=== PATIENT | female | born 1990 | race Caucasian/White ===

== ENCOUNTER → 2017-06-04 | Outpatient (CLI) | payer BC ==
[2017-06-04 08:33] LABS: ALT 30 U/L (9-52); AST 20 U/L (14-36); Alkaline Phosphatase 64 U/L (38-126); Anion Gap 8 mmol/L; Blood Urea Nitrogen 12 mg/dL (7-17); Calcium 9.4 mg/dL (8.4-10.2); Carbon Dioxide 27 mmol/L (22-30); Chloride 101 mmol/L (98-107); Cholesterol 205 mg/dL (<200); Glucose 197 mg/dL (74-99); HDL Cholesterol 71 mg/dL (40-60); Non-African American GFR(MDRD) >60 (>60 ml/min/1.73 sqM); Potassium 4.3 mmol/L (3.5-5.1); Sodium 136 mmol/L (137-145); Total Bilirubin 0.6 mg/dL (0.2-1.3); Total Protein 6.2 g/dL (6.3-8.2); Triglycerides 82 mg/dL (<150)
[2017-06-04 11:28] LABS: Urine Creatinine 163.9 mg/dL
== END ==
LOC: LABWHC1 07:17
PROVIDERS: ATTEND Internal Medicine Endocrinology, Diabetes & Metabolism
DX: E03.8 Other specified hypothyroidism (principal); E10.65 Type 1 diabetes mellitus with hyperglycemia
CPT/HCPCS: 36415; 80053; 80061; 82043; 82570; 84443

== ENCOUNTER → 2017-11-12 | Outpatient (CLI) | payer BC | END | disposition home or self-care (01) | LOC: LABWHC1 12:36 | PROVIDERS: ATTEND Internal Medicine | DX: E03.9 Hypothyroidism, unspecified (principal) | CPT/HCPCS: 36415; 84439; 84443 ==

== ENCOUNTER → 2018-03-17 | Outpatient (CLI) | payer BC ==
[2018-03-18 04:03] LABS: Hemoglobin A1C 7.1 % (4.0-6.0)
== END ==
LOC: LABWHC1 16:52
PROVIDERS: ATTEND Internal Medicine
DX: E10.9 Type 1 diabetes mellitus without complications (principal)
CPT/HCPCS: 36415; 83036

== ENCOUNTER → 2018-06-23 | Outpatient (CLI) | payer BC ==
[2018-06-23 17:08] LABS: ALT 33 U/L (9-52); AST 24 U/L (14-36); Albumin 4.2 g/dL (3.5-5.0); Alkaline Phosphatase 60 U/L (38-126); Anion Gap 8 mmol/L; Blood Urea Nitrogen 16 mg/dL (7-17); Calcium 9.3 mg/dL (8.4-10.2); Carbon Dioxide 26 mmol/L (22-30); Chloride 103 mmol/L (98-107); Cholesterol 186 mg/dL (<200); Glucose 142 mg/dL (74-99); HDL Cholesterol 64 mg/dL (40-60); LDL Cholesterol,Calculated 105 mg/dL (0-99); Potassium 4.1 mmol/L (3.5-5.1); Sodium 137 mmol/L (137-145); Total Bilirubin 0.3 mg/dL (0.2-1.3); Triglycerides 86 mg/dL (<150)
[2018-06-23 17:22] LABS: T4, Free (Free Thyroxine) 1.57 ng/dL (0.78-2.19)
[2018-06-24 04:12] LABS: Hemoglobin A1C 6.6 % (4.0-6.0)
== END | disposition home or self-care (01) ==
LOC: LABWHC1 16:22
PROVIDERS: ATTEND Internal Medicine
DX: E03.9 Hypothyroidism, unspecified (principal); E10.9 Type 1 diabetes mellitus without complications
CPT/HCPCS: 36415; 80053; 80061; 82043; 82570; 83036; 84439; 84443

== ENCOUNTER 2018-10-07 21:45 | Emergency (ER) | payer BC ==
[2018-10-07] MEDS ORDERED: MAG HYDROX/AL HYDROX/SIMETH 30 ML, HYOSCYAMINE ELIXIR 10 ML, CIMETIDINE HCL 300 MG, LID... PO STA ×4 (22:20)
[2018-10-07] MEDS ORDERED: SODIUM CHLORIDE 0.9% 500 ML 500 ML IV STA (22:20)
[2018-10-07 22:54] LABS: Basophils % (A) 0 %; Eosinophils # (A) 0.3 k/uL (0-0.7); Eosinophils % (A) 3 %; HCT 43.5 % (34.0-46.0); HGB 14.6 gm/dL (11.4-16.0); Lymphocytes # (A) 0.9 k/uL (1.0-4.8); Lymphocytes % (A) 8 %; MCH 28.3 pg (25.0-35.0); MCHC 33.6 g/dL (31.0-37.0); MCV 84.2 fL (80.0-100.0); Mean Platelet Volume 7.1; Monocytes # (A) 0.5 k/uL (0-1.0); Monocytes % (A) 5 %; Neutrophils # (A) 8.3 k/uL (1.3-7.7); Neutrophils % (A) 81 %; Platelet Count 272 k/uL (150-450); RBC 5.17 m/uL (3.80-5.40); RDW 12.9 % (11.5-15.5); WBC 10.3 k/uL (3.8-10.6)
[2018-10-07 22:55] LABS: HCG,Qualitative Serum Not Detected
[2018-10-07 22:57] LABS: ALT 29 U/L (9-52); AST 25 U/L (14-36); Albumin 4.5 g/dL (3.5-5.0); Alkaline Phosphatase 69 U/L (38-126); Amylase 56 U/L (30-110); Anion Gap 9 mmol/L; Blood Urea Nitrogen 14 mg/dL (7-17); Calcium 9.6 mg/dL (8.4-10.2); Carbon Dioxide 22 mmol/L (22-30); Chloride 104 mmol/L (98-107); Glucose 206 mg/dL (74-99); Lipase 11 U/L (23-300); Potassium 4.3 mmol/L (3.5-5.1); Sodium 135 mmol/L (137-145); Total Bilirubin 0.4 mg/dL (0.2-1.3); Total Protein 6.7 g/dL (6.3-8.2)
[2018-10-07 23:13] VITALS: RESP 18
--- NOTE | 2018-10-07 23:21 | ED ---
Abdominal Pain HPI - General Chief Complaint: Abdominal Pain Stated Complaint: Abd pain Time Seen by Provider: 10/07/18 22:05 Source: patient Mode of arrival: ambulatory Limitations: no limitations - History of Present Illness Initial Comments: 28-year-old female patient presents to the emergency department today for complaints of midepigastric burning and discomfort. He should states that symptoms have been present since about 6:30 PM after eating dinner. States he was a healthy male with turkey burger and quinoa. Patient states she has had 2 similar episodes to this over the last couple of weeks. States that she does feel nauseated but has not vomited. She denies any fevers or chills. States that she has been having some diarrhea and has had 2 episodes today. She denies any constipation. She denies any recent travel or sick contacts. She does have history of type 1 diabetes and hyperthyroidism. States that she does keep very good control of her blood sugars. Patient denies any recent rash, fever, chills, shortness breath, chest pain, back pain, numbness, tingling, dizziness, weakness, hematuria, dysuria, urinary urgency, urinary frequency, headache, visual changes, or any other complaints. - Related Data Home Medications Medication Instructions Recorded Confirmed Beclomethasone Dipropionate [Qvar 2 puff INHALATION RT-BID 10/07/18 10/07/18 80 mcg] Cholecalciferol (Vitamin D3) 2,000 unit PO DAILY 10/07/18 10/07/18 [Vitamin D3] Insulin Aspart (For Pump) [NovoLOG 0.01 unit SQ-PUMP CONTINUOUS 10/07/18 (For Pump)] Levothyroxine Sodium [Synthroid] 150 mcg PO DAILY 10/07/18 10/07/18 Loratadine [Claritin] 10 mg PO DAILY 10/07/18 10/07/18 Montelukast [Singulair] 10 mg PO DAILY 10/07/18 10/07/18 Previous Rx's Medication Instructions Recorded Famotidine [Pepcid] 20 mg PO DAILY #30 tablet 10/08/18 Allergies Allergy/AdvReac Type Severity Reaction Status Date / Time Penicillins Allergy Rash/Hives Verified 10/07/18 22:51 Review of Systems ROS Statement: Those systems with pertinent positive or pertinent negative responses have been documented in the HPI. ROS Other: All systems not noted in ROS Statement are negative. Past Medical History Past Medical History: Asthma, Diabetes Mellitus, Thyroid Disorder History of Any Multi-Drug Resistant Organisms: None Reported Past Surgical History: No Surgical Hx Reported Past Psychological History: No Psychological Hx Reported Smoking Status: Never smoker Past Alcohol Use History: None Reported Past Drug Use History: None Reported General Exam Limitations: no limitations General appearance: alert, in no apparent distress, other (This is a well- developed, well-nourished adult female patient in no acute distress. Vital signs upon presentation are temperature 97.9F, pulse 105, respirations 20, blood pressure 134/92, pulse ox 99% on room air.) Eye exam: Present: normal appearance, PERRL, EOMI. Absent: scleral icterus, conjunctival injection, periorbital swelling ENT exam: Present: normal exam, normal oropharynx, mucous membranes moist Respiratory exam: Present: normal lung sounds bilaterally. Absent: respiratory distress, wheezes, rales, rhonchi, stridor Cardiovascular Exam: Present: regular rate, normal rhythm, normal heart sounds. Absent: systolic murmur, diastolic murmur, rubs, gallop, clicks GI/Abdominal exam: Present: soft, tenderness (Midepigastric discomfort), normal bowel sounds, other (Negative Rogers sign). Absent: distended, guarding, rebound, rigid Neurological exam: Present: alert, oriented X3, CN II-XII intact Psychiatric exam: Present: normal affect, normal mood Skin exam: Present: warm, dry, intact, normal color. Absent: rash Course Vital Signs 10/07/18 10/07/18 10/08/18 22:00 23:12 01:02 Temperature 97.9 F 99 F Pulse Rate 105 H 79 67 Respiratory 20 18 18 Rate Blood Pressure 134/92 112/76 119/64 O2 Sat by Pulse 99 98 98 Oximetry Medical Decision Making - Medical Decision Making 28-year-old female patient history of type 1 diabetes presents the emergency department today for evaluation of midepigastric abdominal pain and burning. Patient states that she does feel nauseous with this. Physical examination did reveal some midepigastric tenderness. Labs reviewed and are unremarkable. Patient did have a meal just prior to arrival therefore we are unable to perform ultrasound due to likelihood of bowel gas obscuring her images. Patient did receive GI cocktail and Pepcid here in the department, she states this improved her symptoms somewhat. Patient is comfortable being discharged home at this time. She will be given outpatient ultrasound, she is instructed to remain nothing by mouth prior to this procedure. She is instructed to follow -up with her primary care physician for results of this test and to discuss possible referral to gastroenterology if test results are normal. She'll be given a prescription for Pepcid. She is instructed to return immediately for any new, worsening, or concerning symptoms. She verbalizes understanding and agrees with this plan. - Lab Data Result diagrams: 10/07/18 22:31 10/07/18 22:31 Lab Results 10/07/18 10/07/18 10/07/18 Range/Units 22:31 22:31 22:31 WBC 10.3 (3.8-10.6) k/uL RBC 5.17 (3.80-5.40) m/uL Hgb 14.6 (11.4-16.0) gm/dL Hct 43.5 (34.0-46.0) % MCV 84.2 (80.0-100.0) fL MCH 28.3 (25.0-35.0) pg MCHC 33.6 (31.0-37.0) g/dL RDW 12.9 (11.5-15.5) % Plt Count 272 (150-450) k/uL Neutrophils % 81 % Lymphocytes % 8 % Monocytes % 5 % Eosinophils % 3 % Basophils % 0 % Neutrophils # 8.3 H (1.3-7.7) k/uL Lymphocytes # 0.9 L (1.0-4.8) k/uL Monocytes # 0.5 (0-1.0) k/uL Eosinophils # 0.3 (0-0.7) k/uL Basophils # 0.0 (0-0.2) k/uL Sodium 135 L (137-145) mmol/L Potassium 4.3 (3.5-5.1) mmol/L Chloride 104 (98-107) mmol/L Carbon Dioxide 22 (22-30) mmol/L Anion Gap 9 mmol/L BUN 14 (7-17) mg/dL Creatinine 0.66 (0.52-1.04) mg/dL Est GFR (CKD-EPI)AfAm >90 (>60 ml/min/1.73 sqM) Est GFR (CKD-EPI)NonAf >90 (>60 ml/min/1.73 sqM) Glucose 206 H (74-99) mg/dL Calcium 9.6 (8.4-10.2) mg/dL Total Bilirubin 0.4 (0.2-1.3) mg/dL AST 25 (14-36) U/L ALT 29 (9-52) U/L Alkaline Phosphatase 69 (38-126) U/L Total Protein 6.7 (6.3-8.2) g/dL Albumin 4.5 (3.5-5.0) g/dL Amylase 56 (30-110) U/L Lipase 11 L (23-300) U/L HCG, Qual Not Detected Urine Color Urine Appearance (Clear) Urine pH (5.0-8.0) Ur Specific Sullivan (1.001-1.035) Urine Protein (Negative) Urine Glucose (UA) (Negative) Urine Ketones (Negative) Urine Blood (Negative) Urine Nitrite (Negative) Urine Bilirubin (Negative) Urine Urobilinogen (<2.0) mg/dL Ur Leukocyte Esterase (Negative) Urine HCG, Qual (Not Detectd) Acetone, Qual Negative (Negative) 10/08/18 10/08/18 Range/Units 00:40 00:40 WBC (3.8-10.6) k/uL RBC (3.80-5.40) m/uL Hgb (11.4-16.0) gm/dL Hct (34.0-46.0) % MCV (80.0-100.0) fL MCH (25.0-35.0) pg MCHC (31.0-37.0) g/dL RDW (11.5-15.5) % Plt Count (150-450) k/uL Neutrophils % % Lymphocytes % % Monocytes % % Eosinophils % % Basophils % % Neutrophils # (1.3-7.7) k/uL Lymphocytes # (1.0-4.8) k/uL Monocytes # (0-1.0) k/uL Eosinophils # (0-0.7) k/uL Basophils # (0-0.2) k/uL Sodium (137-145) mmol/L Potassium (3.5-5.1) mmol/L Chloride (98-107) mmol/L Carbon Dioxide (22-30) mmol/L Anion Gap mmol/L BUN (7-17) mg/dL Creatinine (0.52-1.04) mg/dL Est GFR (CKD-EPI)AfAm (>60 ml/min/1.73 sqM) Est GFR (CKD-EPI)NonAf (>60 ml/min/1.73 sqM) Glucose (74-99) mg/dL Calcium (8.4-10.2) mg/dL Total Bilirubin (0.2-1.3) mg/dL AST (14-36) U/L ALT (9-52) U/L Alkaline Phosphatase (38-126) U/L Total Protein (6.3-8.2) g/dL Albumin (3.5-5.0) g/dL Amylase (30-110) U/L Lipase (23-300) U/L HCG, Qual Urine Color Yellow Urine Appearance Clear (Clear) Urine pH 6.5 (5.0-8.0) Ur Specific Sullivan 1.024 (1.001-1.035) Urine Protein Trace H (Negative) Urine Glucose (UA) 3+ H (Negative) Urine Ketones 3+ H (Negative) Urine Blood Negative (Negative) Urine Nitrite Negative (Negative) Urine Bilirubin Negative (Negative) Urine Urobilinogen <2.0 (<2.0) mg/dL Ur Leukocyte Esterase Negative (Negative) Urine HCG, Qual Not Detected (Not Detectd) Acetone, Qual (Negative) Disposition Clinical Impression: Midepigastric pain Disposition: HOME SELF-CARE Condition: Good Instructions: Diet for Stomach Ulcers and Gastritis (ED), Abdominal Pain (ED) Additional Instructions: Follow up outpatient to get your ultrasound. Follow up with primary care physician to discuss results and possible referral to GI specialty if the ultrasound is normal. Return to the emergency department for recheck if symptoms change or worsen. Prescriptions: Famotidine [Pepcid] 20 mg PO DAILY #30 tablet Is patient prescribed a controlled substance at d/c from ED?: No Referrals: Atilio Aldana MD [Primary Care Provider] - 1-2 days Time of Disposition: 00:49
[2018-10-07] MEDS ORDERED: FAMOTIDINE 20 MG/2 ML VIAL IV STA (23:51)
[2018-10-08 00:52] LABS: Appearance,Urine Clear (Clear); Bilirubin,Urine Negative (Negative); Blood,Urine Negative (Negative); Color,Urine Yellow; Glucose,Urine (UA) 3+ (Negative); Leukocyte Esterase,Urine Negative (Negative); Nitrite,Urine Negative (Negative); PH, Urine 6.5 (5.0-8.0); Protein,Urine Trace (Negative); Specific Gravity,Urine 1.024 (1.001-1.035); Urobilinogen,Urine <2.0 mg/dL (<2.0)
[2018-10-08 00:58] LABS: Ketones,Urine 3+ (Negative)
[2018-10-08 01:03] VITALS: BP 119/64; PULSE 67; TEMP 99
== END 2018-10-08 01:02 | disposition home or self-care (01) ==
LOC: EC 21:45
DX: R10.13 Epigastric pain (principal); R11.0 Nausea; R19.7 Diarrhea, unspecified; J45.909 Unspecified asthma, uncomplicated; E05.90 Thyrotoxicosis, unspecified without thyrotoxic crisis or storm; E10.9 Type 1 diabetes mellitus without complications; Z88.0 Allergy status to penicillin; Z79.4 Long term (current) use of insulin; Z79.51 Long term (current) use of inhaled steroids; Z79.899 Other long term (current) drug therapy
CPT/HCPCS: 36415; 80053; 81003; 81025; 82009; 82150; 83690; 84703; 85025; 96361; 96374; 99284

== ENCOUNTER → 2018-10-08 | Outpatient (CLI) | payer BC ==
--- NOTE | 2018-10-08 15:53 | US ---
EXAMINATION TYPE: US abdomen limited DATE OF EXAM: 10/08/2018 COMPARISON: NONE CLINICAL HISTORY: 28-year-old female R10.13 EPIGASTRIC PAIN. TECHNIQUE: Multiple sonographic images of the right upper quadrant are obtained. FINDINGS: EXAM MEASUREMENTS: Liver Length: 12.5 cm Gallbladder Wall: 0.2 cm CBD: 0.3 cm Right Kidney: 9.3 x 5.1 x 4.5 cm Pancreas: Tail obscured by overlying bowel gas Liver: wnl Gallbladder: wnl Evidence for sonographic Rogers's sign: no CBD: wnl Right Kidney: partially obscured by overlying bowel gas, otherwise no hydronephrosis. IMPRESSION: Suboptimal visualization of portions of the pancreas and portions of the right kidney. Otherwise, no specific abnormality seen in the right upper quadrant.
== END ==
LOC: RADUSWWP 09:45
PROVIDERS: ATTEND Nurse Practitioner
DX: R10.13 Epigastric pain (principal)
CPT/HCPCS: 76705

== ENCOUNTER → 2018-10-30 | Outpatient (CLI) | payer BC ==
[2018-10-30 17:28] LABS: Hemoglobin A1C 6.6 % (4.0-6.0)
== END ==
LOC: LABWHC1 10:11
PROVIDERS: ATTEND Internal Medicine
DX: E10.9 Type 1 diabetes mellitus without complications (principal)
CPT/HCPCS: 36415; 83036

== ENCOUNTER → 2019-04-14 | Outpatient (CLI) | payer BC ==
[2019-04-14 16:06] LABS: Albumin 4.4 g/dL (3.80-4.90); Albumin/Globulin Ratio 3.67 (1.60-3.17); Anion Gap 8.4 mmol/L (4.00-12.00); Calcium 9.6 mg/dL (8.7-10.3); Carbon Dioxide 26.6 mmol/L (21.6-31.8); Globulin 1.2 g/dL (1.6-3.3); LDL Cholesterol,Calculated 96.4 mg/dL (0.0-131.0); Potassium 4.1 mmol/L (3.5-5.5); Total Bilirubin 0.4 mg/dL (0.2-1.2); Total Protein 5.6 g/dL (6.2-8.2); VLDL Calculation 14.6 mg/dL (5.00-40.00)
[2019-04-14 16:14] LABS: T4, Free (Free Thyroxine) 1.4 ng/dL (0.80-1.80)
[2019-04-14 18:39] LABS: Hemoglobin A1C 6.4 % (4.0-6.0)
== END ==
LOC: LABWHC1 08:44
PROVIDERS: ATTEND Internal Medicine
DX: E10.9 Type 1 diabetes mellitus without complications (principal)
CPT/HCPCS: 36415; 80053; 80061; 82043; 82306; 82570; 83036; 84439; 84443

== ENCOUNTER → 2019-08-27 | Outpatient (CLI) | payer BC ==
[2019-08-27 19:05] LABS: Hemoglobin A1C 6.2 % (4.0-6.0)
== END | disposition home or self-care (01) ==
LOC: LABWHC1 08:46
PROVIDERS: ATTEND Internal Medicine
DX: E10.9 Type 1 diabetes mellitus without complications (principal)
CPT/HCPCS: 36415; 83036

== ENCOUNTER → 2019-11-16 | Outpatient (CLI) | payer BC ==
[2019-11-16 17:13] LABS: African American GFR (CKD) 135.7 (60.0-200.0); Anion Gap 6.2 mmol/L (4.00-12.00); BUN/Creat Ratio 21.43 Ratio (12.00-20.00); Calcium 9.3 mg/dL (8.7-10.3); Carbon Dioxide 24.8 mmol/L (21.6-31.8); Chol/HDL Ratio 2.92; LDL Cholesterol,Calculated 98.8 mg/dL (0.0-131.0); Non-African American GFR(CKD) 117.1 (60.0-200.0); Potassium 4.4 mmol/L (3.5-5.5); VLDL Calculation 14.2 mg/dL (5.00-40.00)
[2019-11-16 17:21] LABS: T4, Free (Free Thyroxine) 1.3 ng/dL (0.80-1.80)
[2019-11-16 18:09] LABS: Hemoglobin A1C 5.8 % (4.0-6.0)
[2019-11-16 18:10] LABS: Microalbumin Creatinine Ratio <30 mg/g Creat (0-30)
== END | disposition home or self-care (01) ==
LOC: LABWHC1 09:51
PROVIDERS: ATTEND Internal Medicine
DX: E10.9 Type 1 diabetes mellitus without complications (principal); E03.9 Hypothyroidism, unspecified
CPT/HCPCS: 36415; 80048; 80061; 82043; 82570; 83036; 84439; 84443

== ENCOUNTER → 2019-11-23 | Outpatient (CLI) | payer BC | END | disposition home or self-care (01) | LOC: LABWHC1 12:04 | PROVIDERS: ATTEND Obstetrics & Gynecology | DX: Z34.00 Encounter for supervision of normal first pregnancy, unspecified trimester (principal); Z3A.00 Weeks of gestation of pregnancy not specified | CPT/HCPCS: 36415; 84702; 86850; 86900; 86901 ==

== ENCOUNTER → 2019-11-25 | Outpatient (CLI) | payer BC | END | disposition home or self-care (01) | LOC: LABWHC1 10:25 | PROVIDERS: ATTEND Obstetrics & Gynecology | DX: O02.1 Missed abortion (principal) | CPT/HCPCS: 36415; 84702 ==

== ENCOUNTER → 2019-11-30 | Outpatient (CLI) | payer BC | END | disposition home or self-care (01) | LOC: LABWHC1 11:20 | PROVIDERS: ATTEND Obstetrics & Gynecology | DX: O03.9 Complete or unspecified spontaneous abortion without complication (principal) | CPT/HCPCS: 36415; 84702 ==

== ENCOUNTER → 2020-01-28 | Outpatient (CLI) | payer BC ==
[2020-01-28 09:17] LABS: African American GFR (CKD) >90 (>60 ml/min/1.73 sqM); Glucose 86 mg/dL (74-99); HCT 40.9 % (34.0-46.0); HGB 14.5 gm/dL (11.4-16.0); MCH 30.3 pg (25.0-35.0); MCHC 35.4 g/dL (31.0-37.0); MCV 85.6 fL (80.0-100.0); Mean Platelet Volume 7.6; Non-African American GFR(CKD) >90 (>60 ml/min/1.73 sqM); Platelet Count 228 k/uL (150-450); RBC 4.77 m/uL (3.80-5.40); RDW 12.6 % (11.5-15.5); WBC 6.7 k/uL (3.8-10.6)
[2020-01-28 10:09] LABS: HCG,Quantitative Serum 19364.2 mIU/mL
[2020-01-28 17:45] LABS: Hepatitis B Surface Antigen Non-Reactive (Non-Reactive)
[2020-01-29 06:05] LABS: Toxoplasma Antibody (IgG) <3.0 IU/mL (<7.2); Toxoplasma Antibody (IgM) <3.0 AU/mL (<8.0)
== END | disposition home or self-care (01) ==
LOC: LABWHC1 08:23
PROVIDERS: ATTEND Obstetrics & Gynecology
DX: N91.2 Amenorrhea, unspecified (principal)
CPT/HCPCS: 36415; 82565; 82947; 84702; 85027; 86762; 86777; 86778; 86780; 86850; 86900; 86901; 87340

== ENCOUNTER 2020-03-01 06:41 | Observation (INO) | payer BC ==
[2020-03-01] MEDS ORDERED: SODIUM CHLORIDE 0.9% 1,000 ML IV ONE (06:56)
--- NOTE | 2020-03-01 06:59 | ED ---
Female Urogenital HPI <Ag Lima - Last Filed: 03/01/20 09:04> - General Source: patient, RN notes reviewed, old records reviewed Mode of arrival: EMS <Cyndi Shah - Last Filed: 03/01/20 09:12> - General Chief complaint: Vaginal Bleeding Stated complaint: poss miscarriage Time Seen by Provider: 03/01/20 06:46 - History of Present Illness Initial comments: Judy is a 30-year-old female, Patient. She states that she is approximately 8 weeks . She states that her [employer] is Dr. Morgan. Patient reports that on her last appointment last week they were unable to detect a heartbeat. Discussed likely inevitable miscarriage. She had light bleeding since Saturday of last week. She reports that today at 5 AM started to have severe bleeding and worsening cramping. Patient states that she is having similar abdominal cramping on her last miscarriage. She was unsure if she may need D and C. (Cyndi Shah) - Related Data Home Medications Medication Instructions Recorded Confirmed Beclomethasone Dipropionate [Qvar 2 puff INHALATION RT-BID 10/07/18 10/07/18 80 mcg] Cholecalciferol (Vitamin D3) 2,000 unit PO DAILY 10/07/18 10/07/18 [Vitamin D3] Insulin Aspart (For Pump) [NovoLOG 0.01 unit SQ-PUMP CONTINUOUS 10/07/18 10/07/18 (For Pump)] Levothyroxine Sodium [Synthroid] 150 mcg PO DAILY 10/07/18 10/07/18 Loratadine [Claritin] 10 mg PO DAILY 10/07/18 10/07/18 Montelukast [Singulair] 10 mg PO DAILY 10/07/18 10/07/18 Previous Rx's Medication Instructions Recorded Famotidine [Pepcid] 20 mg PO DAILY #30 tablet 10/08/18 Allergies Allergy/AdvReac Type Severity Reaction Status Date / Time Penicillins Allergy Rash/Hives Verified 10/07/18 22:51 Review of Systems ROS Other: All systems not noted in ROS Statement are negative. <Ag Lima - Last Filed: 03/01/20 09:04> ROS Other: All systems not noted in ROS Statement are negative. <Cyndi Shah - Last Filed: 03/01/20 09:12> ROS Statement: Those systems with pertinent positive or pertinent negative responses have been documented in the HPI. Past Medical History Past Medical History: Asthma, Diabetes Mellitus, Thyroid Disorder History of Any Multi-Drug Resistant Organisms: None Reported Past Surgical History: No Surgical Hx Reported Past Psychological History: No Psychological Hx Reported Smoking Status: Never smoker Past Alcohol Use History: Occasional Past Drug Use History: None Reported <Cyndi Shah - Last Filed: 03/01/20 09:12> General Exam General appearance: alert, in no apparent distress Head exam: Present: atraumatic, normocephalic, normal inspection Eye exam: Present: normal appearance, PERRL, EOMI. Absent: scleral icterus, conjunctival injection, periorbital swelling ENT exam: Present: normal exam, mucous membranes moist Neck exam: Present: normal inspection. Absent: tenderness, meningismus, lymphadenopathy Respiratory exam: Present: normal lung sounds bilaterally. Absent: respiratory distress, wheezes, rales, rhonchi, stridor Cardiovascular Exam: Present: regular rate, normal rhythm, normal heart sounds. Absent: systolic murmur, diastolic murmur, rubs, gallop, clicks GI/Abdominal exam: Present: soft, tenderness (suprapubic), normal bowel sounds. Absent: distended, guarding, rebound, rigid External exam: Present: normal external exam, other (Patient is bleeding through multiple pads and towels underneath her. ) Extremities exam: Present: normal inspection, full ROM, normal capillary refill. Absent: tenderness, pedal edema, joint swelling, calf tenderness Back exam: Present: normal inspection Neurological exam: Present: alert, oriented X3, CN II-XII intact Psychiatric exam: Present: normal affect, normal mood Skin exam: Present: warm, dry, intact, normal color. Absent: rash <Cyndi Shah - Last Filed: 03/01/20 09:12> - General Exam Comments Initial Comments: 30-year-old female. Alert and oriented. (Cyndi Shah) Course Vital Signs 03/01/20 06:53 Temperature 98 F Pulse Rate 115 H Respiratory 18 Rate Blood Pressure 111/87 O2 Sat by Pulse 97 Oximetry Medical Decision Making - Lab Data Result diagrams: 03/01/20 07:20 03/01/20 07:20 <Ag Lima - Last Filed: 03/01/20 09:04> - Lab Data Result diagrams: 03/01/20 07:20 03/01/20 07:20 - Radiology Data Radiology results: report reviewed <ThiCyndi delatorre - Last Filed: 03/01/20 09:12> - Medical Decision Making Patient reexamined and reevaluated by myself, Dr. Lima. Patient resting comfortably in bed. Mild discomfort on abdominal palpation. Patient updated on results. Case was discussed in detail with Dr. Morgan who is familiar with this patient and will take her for D&C later today. I do agree with PA findings. This includes diagnostic interpretation and treatment plan. (Ag Villatoro) 30-year-old female presents today with heavy vaginal bleeding and cramping sta rting at 5 AM. She is a Patient. She also is a type I diabetic. Patient is bleeding through multiple pads passing multiple clots when going to the bathroom and emergency department. Patient reports that she has had some minor slight bleeding since Saturday and at that time reports she had an ultrasound at her [employer] OPERATOR's office which showed no heart rate and suspected inevitable miscarriage. Repeat ultrasound today shows thickened endometrium concern for retained particles conception or molar . Her hCG level is now 12,000. This did decrease from 19,000. Patient is Rh+. I discussed case with Dr. Lima who discussed the case with Dr. Verduzco. We'll admit the Patient at this time for a scheduled D&C around 1pm. Patient is to be NPO. (Cyndi Shah) - Lab Data Lab Results 03/01/20 03/01/20 03/01/20 Range/Units 07:20 07:20 07:20 WBC 8.3 (3.8-10.6) k/uL RBC 4.84 (3.80-5.40) m/uL Hgb 14.3 (11.4-16.0) gm/dL Hct 41.3 (34.0-46.0) % MCV 85.3 (80.0-100.0) fL MCH 29.5 (25.0-35.0) pg MCHC 34.6 (31.0-37.0) g/dL RDW 12.4 (11.5-15.5) % Plt Count 251 (150-450) k/uL Neutrophils % 76 % Lymphocytes % 10 % Monocytes % 5 % Eosinophils % 6 % Basophils % 0 % Neutrophils # 6.3 (1.3-7.7) k/uL Lymphocytes # 0.9 L (1.0-4.8) k/uL Monocytes # 0.5 (0-1.0) k/uL Eosinophils # 0.5 (0-0.7) k/uL Basophils # 0.0 (0-0.2) k/uL PT 10.0 (9.0-12.0) sec INR 1.0 (<1.2) APTT 22.5 (22.0-30.0) sec Sodium 135 L (137-145) mmol/L Potassium 3.9 (3.5-5.1) mmol/L Chloride 102 (98-107) mmol/L Carbon Dioxide 23 (22-30) mmol/L Anion Gap 10 mmol/L BUN 16 (7-17) mg/dL Creatinine 0.51 L (0.52-1.04) mg/dL Est GFR (CKD-EPI)AfAm >90 (>60 ml/min/1.73 sqM) Est GFR (CKD-EPI)NonAf >90 (>60 ml/min/1.73 sqM) Glucose 112 H (74-99) mg/dL Calcium 9.3 (8.4-10.2) mg/dL Total Bilirubin 0.4 (0.2-1.3) mg/dL AST 19 (14-36) U/L ALT 14 (4-34) U/L Alkaline Phosphatase 53 (38-126) U/L Total Protein 6.4 (6.3-8.2) g/dL Albumin 4.2 (3.5-5.0) g/dL HCG, Quant 87047.0 mIU/mL Blood Type Blood Type Recheck Bld Type Recheck Status 03/01/20 Range/Units 07:20 WBC (3.8-10.6) k/uL RBC (3.80-5.40) m/uL Hgb (11.4-16.0) gm/dL Hct (34.0-46.0) % MCV (80.0-100.0) fL MCH (25.0-35.0) pg MCHC (31.0-37.0) g/dL RDW (11.5-15.5) % Plt Count (150-450) k/uL Neutrophils % % Lymphocytes % % Monocytes % % Eosinophils % % Basophils % % Neutrophils # (1.3-7.7) k/uL Lymphocytes # (1.0-4.8) k/uL Monocytes # (0-1.0) k/uL Eosinophils # (0-0.7) k/uL Basophils # (0-0.2) k/uL PT (9.0-12.0) sec INR (<1.2) APTT (22.0-30.0) sec Sodium (137-145) mmol/L Potassium (3.5-5.1) mmol/L Chloride (98-107) mmol/L Carbon Dioxide (22-30) mmol/L Anion Gap mmol/L BUN (7-17) mg/dL Creatinine (0.52-1.04) mg/dL Est GFR (CKD-EPI)AfAm (>60 ml/min/1.73 sqM) Est GFR (CKD-EPI)NonAf (>60 ml/min/1.73 sqM) Glucose (74-99) mg/dL Calcium (8.4-10.2) mg/dL Total Bilirubin (0.2-1.3) mg/dL AST (14-36) U/L ALT (4-34) U/L Alkaline Phosphatase (38-126) U/L Total Protein (6.3-8.2) g/dL Albumin (3.5-5.0) g/dL HCG, Quant mIU/mL Blood Type O Positive Blood Type Recheck O Pos Bld Type Recheck Status No - Radiology Data Ultrasound shows endometrium remains thickened measuring 1.9 cm and vascular. Retained products or molar not excluded. There is a 2.4 cm cyst in the left ovary. Correlate her beta hCG and ultrasound is warranted. There is a 5 cm area of abnormal echogenicity in the upper portion which could represent a blood clot or hematoma. (Cyndi Shah) Disposition <Ag Lima - Last Filed: 03/01/20 09:04> Is patient prescribed a controlled substance at d/c from ED?: No Time of Disposition: 09:12 <Cyndi Shah - Last Filed: 03/01/20 09:12> Clinical Impression: Miscarriage, Diabetes Disposition: ADMITTED IP TO THIS HOSP Condition: Stable Referrals: Atilio Aldana MD [Primary Care Provider] - 1-2 days
[2020-03-01 07:39] LABS: Basophils % (A) 0 %; Eosinophils # (A) 0.5 k/uL (0-0.7); Eosinophils % (A) 6 %; HCT 41.3 % (34.0-46.0); HGB 14.3 gm/dL (11.4-16.0); Lymphocytes # (A) 0.9 k/uL (1.0-4.8); Lymphocytes % (A) 10 %; MCH 29.5 pg (25.0-35.0); MCHC 34.6 g/dL (31.0-37.0); MCV 85.3 fL (80.0-100.0); Mean Platelet Volume 7.7; Monocytes # (A) 0.5 k/uL (0-1.0); Monocytes % (A) 5 %; Neutrophils # (A) 6.3 k/uL (1.3-7.7); Neutrophils % (A) 76 %; Platelet Count 251 k/uL (150-450); RBC 4.84 m/uL (3.80-5.40); RDW 12.4 % (11.5-15.5); WBC 8.3 k/uL (3.8-10.6)
[2020-03-01 07:50] LABS: ALT 14 U/L (4-34); AST 19 U/L (14-36); African American GFR (CKD) >90 (>60 ml/min/1.73 sqM); Albumin 4.2 g/dL (3.5-5.0); Alkaline Phosphatase 53 U/L (38-126); Anion Gap 10 mmol/L; Blood Urea Nitrogen 16 mg/dL (7-17); Calcium 9.3 mg/dL (8.4-10.2); Carbon Dioxide 23 mmol/L (22-30); Chloride 102 mmol/L (98-107); Glucose 112 mg/dL (74-99); Non-African American GFR(CKD) >90 (>60 ml/min/1.73 sqM); Potassium 3.9 mmol/L (3.5-5.1); Sodium 135 mmol/L (137-145); Total Bilirubin 0.4 mg/dL (0.2-1.3); Total Protein 6.4 g/dL (6.3-8.2)
[2020-03-01 07:54] LABS: Partial Thromboplastin Time 22.5 sec (22.0-30.0)
--- NOTE | 2020-03-01 08:23 | US ---
EXAMINATION TYPE: Transabdominal DATE OF EXAM: 03/01/2020 7:57 AM COMPARISON: NONE CLINICAL HISTORY: pain. demise seen by ultrasound at Dr. Morgan's office 1 week ago, bleeding x 1 week that has gotten worse today, 2, miscarriage 1 EXAM PERFORMED: Transabdominal (TA) EXAM MEASUREMENTS: GESTATIONAL AGE / DATING Physician Established: (10 weeks/0 days) EDC: 09/27/2020 Dates by LMP: (10 weeks/0 days) EDC: 09/27/2020 Dates by First Scan: No previous done here Dates by Current Scan for: No IUP seen at this time MATERNAL ANATOMY Uterus: 11.2 x 4.6 x 5.5cm Endometrium: thickened at 1.9cm, vascular Right Ovary: 2.9 x 1.8 x 1.9cm Left Ovary: 3.4 x 2.7 x 2.8cm Post CDS / Adnexa: wnl Presence of free fluid: no Presence of corpus luteal cyst: left ovary: 2.4cm cystic area Presence of subchorionic bleed: no 4.4 x 3.1 x 5.0cm area seen within upper portion of vagina, possible clot GESTATION / SURVEY IUP: No IUP seen at this time Date of LMP: 12/22/2019 Beta HcG (if available): Not available at time of exam. IMPRESSION: 1. The endometrium remains thickened measuring 1.9 cm and vascular. Retained products or molar pregna ncy not excluded. There remains a 2.4 cm cyst in the left ovary. Correlate with beta hCG and pelvic u ltrasound as clinically warranted. 2. There is a 5 cm area of abnormal echogenicity in the upper portion Amina which could represent a blood clot or hematoma.
[2020-03-01] MEDS ORDERED: ACETAMINOPHEN TAB 325 MG TAB PO PRN (09:12)
[2020-03-01] MEDS ORDERED: KETOROLAC 30 MG/ML 1 ML VIAL IVP PRN (09:12)
[2020-03-01] MEDS ORDERED: IBUPROFEN 400 MG TAB PO PRN (09:12)
[2020-03-01] MEDS ORDERED: MORPHINE SULFATE 4 MG/ML SYRINGE IV PRN (09:12)
[2020-03-01] MEDS ORDERED: NALOXONE 0.4 MG/ML 1 ML VIAL IV PRN (09:12)
[2020-03-01] MEDS: SODIUM CHLORIDE 0.9% 1,000 ML IV SCH ×2 (09:36→10:35)
--- NOTE | 2020-03-01 11:52 | P.HPOB ---
History of Present Illness H&P Date: 03/01/20 Chief Complaint: Vaginal bleeding, known missed This patient is a pleasant 30-year-old 2 para 0 female estimated date of confinement 09/27/2020 estimated gestational age approximately 10 weeks who has been seen in my office multiple times for this . Patient initially had 2 ultrasounds which showed an intrauterine however there was a slow heartbeat. Patient had a follow-up ultrasound most recently that showed no cardiac activity. She denied discussed options at that time and she elected to watch this expectantly. Patient did have some bleeding last week and began heavy bleeding this morning. Ultrasound shows that there is no longer a sac but there does appear to be retained tissue. Patient now presents for suction D&C for treatment. Review of Systems Genitourinary: Reports Menstruation: Reports as per HPI Past Medical History Past Medical History: Asthma, Diabetes Mellitus, Thyroid Disorder Additional Past Medical History / Comment(s): hypothyroidism History of Any Multi-Drug Resistant Organisms: None Reported Past Surgical History: No Surgical Hx Reported Additional Past Surgical History / Comment(s): wisdom teeth removed Past Anesthesia/Blood Transfusion Reactions: No Reported Reaction Past Psychological History: No Psychological Hx Reported Smoking Status: Never smoker Past Alcohol Use History: Occasional Past Drug Use History: None Reported - Past Family History Mother Family Medical History: Asthma Father Family Medical History: No Reported History Medications and Allergies Home Medications Medication Instructions Recorded Confirmed Type Beclomethasone Dipropionate [Qvar 2 puff INHALATION RT-BID 10/07/18 03/01/20 History 80 mcg] Cholecalciferol (Vitamin D3) 2,000 unit PO DAILY 10/07/18 03/01/20 History [Vitamin D3] Levothyroxine Sodium [Synthroid] 150 mcg PO DAILY 10/07/18 03/01/20 History Loratadine [Claritin] 10 mg PO DAILY 10/07/18 03/01/20 History Montelukast [Singulair] 10 mg PO DAILY 10/07/18 03/01/20 History Albuterol Sulfate [Proair Hfa] 2 puff INHALATION RT-QID PRN 03/01/20 03/01/20 History Folic Acid 1 mg PO DAILY 03/01/20 03/01/20 History INSULIN LISPRO (For Pump) [humaLOG 0.01 units SQ-PUMP CONTINUOUS 03/01/20 03/01/20 History (For Pump)] Pnv,Calcium 72/Iron/Folic Acid 1 tab PO DAILY 03/01/20 03/01/20 History [ Plus Tablet] Allergies Allergy/AdvReac Type Severity Reaction Status Date / Time Penicillins Allergy Rash/Hives Verified 10/07/18 22:51 Exam Vital Signs Temp Pulse Pulse Resp BP BP Pulse Ox 03/01/20 10:38 98.3 F 89 17 117/66 100 03/01/20 09:39 86 16 132/86 100 03/01/20 06:53 98 F 115 H 18 111/87 97 Intake and Output 02/29/20 03/01/20 03/01/20 22:59 06:59 14:59 Other: Weight 72.575 kg 72.575 kg Results Blood type is O+., Ultrasounds as above. Result Diagrams: 03/01/20 07:20 03/01/20 07:20 Abnormal Lab Results - Last 24 Hours (Table) 03/01/20 03/01/20 Range/Units 07:20 07:20 Lymphocytes # 0.9 L (1.0-4.8) k/uL Sodium 135 L (137-145) mmol/L Creatinine 0.51 L (0.52-1.04) mg/dL Glucose 112 H (74-99) mg/dL Assessment and Plan Assessment: This is a pleasant 30-year-old 2 para 0 female estimated gestational age 10 weeks by dates however ultrasound gestational age is probably closer to 6-8 weeks with incomplete and vaginal bleeding. Plan at this time is to proceed with suction D&C for treatment. Patient understands this surgery and risks including risks of infection, bleeding, possible uterine perforation. All the patient's questions been answered and a written consent is obtained. (1) 10 weeks gestation of Current Visit: Yes Status: Acute Code(s): Z3A.10 - 10 WEEKS GESTATION OF SNOMED Code(s): 31859234 (2) Incomplete Current Visit: Yes Status: Acute Code(s): O03.4 - INCOMPLETE SPONTANEOUS WITHOUT COMPLICATION SNOMED Code(s): 649312396
[2020-03-01] MEDS ORDERED: IV FLUID CONTINUATION 1,000 ML IV ONE (11:56)
[2020-03-01] MEDS ORDERED: ONDANSETRON 4 MG/2 ML VIAL IVP ONE (12:01)
[2020-03-01 12:10] LABS: Glucose,Whole Blood 108 mg/dL (75-99)
[2020-03-01] MEDS ORDERED: SCOPOLAMINE 1.5MG/72HR PATCH TRANSDERM ONE (12:13)
[2020-03-01] MEDS ORDERED: DEXAMETHASONE SOD PHOS (MDV) 100 MG/10 ML VIAL IVP ONE (12:14)
[2020-03-01] MEDS ORDERED: PROPOFOL 10 MG/ML 20 ML VIAL IV ONE (12:45)
[2020-03-01] MEDS ORDERED: MIDAZOLAM 2 MG/2 ML VIAL ONE (12:45)
[2020-03-01] MEDS ORDERED: LIDOCAINE 1% INJ 10MG/ML (20 ML MDV) ONE (12:45)
[2020-03-01] MEDS ORDERED: fentaNYL (PF) 50 MCG/ML 2 ML AMP ONE (12:45)
[2020-03-01] MEDS ORDERED: SUCCINYLCHOLINE CHLORIDE 100 MG/5 ML SYR IV ONE (12:45)
[2020-03-01 13:21] VITALS: RESP 16
--- NOTE | 2020-03-01 13:38 | P.OP ---
Date of Procedure: 03/01/20 Preoperative Diagnosis: Incomplete Postoperative Diagnosis: Same Procedure(s) Performed: Suction D&C Anesthesia: ROSARIO Surgeon: Gibson Morgan Estimated Blood Loss (ml): 25 Urine output (ml): 50 Pathology: other (Uterine contents) Condition: stable Disposition: PACU Indications for Procedure: Please see dictated H&P for intimate details of this patient's admission. Brief summary this pleasant 30-year-old 2 para 0 female approximately 8-10 weeks gestation with known missed who began bleeding heavily this morning. Patient passed some of the tissue however ultrasound shows are still retained products. She now presents for suction D&C for further treatment. She does understand the surgery and risks including risks of infection, bleeding, possible uterine perforation. All the patient's questions are answered written consent is obtained. Operative Findings: This patient had retained products of conception consistent with incomplete . Description of Procedure: This patient is taken to the operating room where she is laid in the supine position. She subsequently undergoes general endotracheal anesthesia without incident. An adequate level of anesthesia was placed in dorsal lithotomy position. She has a vaginal perineal prep and drape. Examination under anesthesia shows a mid position uterus slightly enlarged. Cervix is already dilated to allow a 9 curved suction curette easily uterine cavity. Using Allis clamp I grabbed the anterior lip of the cervix and the suction catheters placed gently into the uterine cavity and a generous amount of tissue is removed. Several passes are made to no further tissue was noted. A gentle but thorough 4 quadrant curettage then done to ensure no further retained tissue. There is minimal bleeding this time. Prior to procedure patient's bladder was drained for 50 mL of urine. The Allis and weighted speculum are removed. All counts are correct 3. There are no complications. 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
--- NOTE | 2020-03-01 13:47 | P.DS ---
Providers Date of admission: 03/01/20 09:15 Expected date of discharge: 03/01/20 Attending physician: Gibson Morgan Primary care physician: Atilio Aldana - Discharge Diagnosis(es) (1) 10 weeks gestation of Current Visit: Yes Status: Acute (2) Incomplete Current Visit: Yes Status: Acute Hospital Course: Please see dictated H&P and operative note for this patient's admission. Brief summary pleasant 30-year-old 2 para 0 female admitted for suction D&C secondary to incomplete . Patient went above-named surgery did well postoperatively and discharged home see me in 1-2 weeks. Procedures: Suction D&C Patient Condition at Discharge: Good Plan - Discharge Summary Discharge Rx Participant: Yes New Discharge Prescriptions: New Ibuprofen [Motrin] 600 mg PO Q6HR PRN #30 tab PRN Reason: Pain No Action Montelukast [Singulair] 10 mg PO DAILY Loratadine [Claritin] 10 mg PO DAILY Levothyroxine Sodium [Synthroid] 150 mcg PO DAILY Beclomethasone Dipropionate [Qvar 80 mcg] 2 puff INHALATION RT-BID Cholecalciferol (Vitamin D3) [Vitamin D3] 2,000 unit PO DAILY INSULIN LISPRO (For Pump) [humaLOG (For Pump)] 0.01 units SQ-PUMP CONTINUOUS Pnv,Calcium 72/Iron/Folic Acid [ Plus Tablet] 1 tab PO DAILY Folic Acid 1 mg PO DAILY Albuterol Sulfate [Proair Hfa] 2 puff INHALATION RT-QID PRN PRN Reason: Shortness Of Breath Discharge Medication List Beclomethasone Dipropionate [Qvar 80 mcg] 2 puff INHALATION RT-BID 10/07/18 [History] Cholecalciferol (Vitamin D3) [Vitamin D3] 2,000 unit PO DAILY 10/07/18 [History] Levothyroxine Sodium [Synthroid] 150 mcg PO DAILY 10/07/18 [History] Loratadine [Claritin] 10 mg PO DAILY 10/07/18 [History] Montelukast [Singulair] 10 mg PO DAILY 10/07/18 [History] Albuterol Sulfate [Proair Hfa] 2 puff INHALATION RT-QID PRN 03/01/20 [History] Folic Acid 1 mg PO DAILY 03/01/20 [History] INSULIN LISPRO (For Pump) [humaLOG (For Pump)] 0.01 units SQ-PUMP CONTINUOUS 03/01/20 [History] Ibuprofen [Motrin] 600 mg PO Q6HR PRN #30 tab 03/01/20 [Rx] Pnv,Calcium 72/Iron/Folic Acid [ Plus Tablet] 1 tab PO DAILY 03/01/20 [History] Follow up Appointment(s)/Referral(s): Gibson Morgan MD [STAFF PHYSICIAN] - 1 Week (Please call the office to see me in 1-2 weeks for postoperative evaluation.) Patient Instructions/Handouts: *Sur[facility] - (Anesthesia) Discharge Instructions Outpatient Surgery, *[facility] - Scopalamine Patch Instructions, Miscarriage (DC), Dilation and Curettage (DC) Activity/Diet/Wound Care/Special Instructions: No intercourse or anything per vagina for 7 days. Please call if any fever, chills, excessive vaginal bleeding, and/or abdominal pain. Discharge Disposition: HOME SELF-CARE
[2020-03-01 14:18] VITALS: TEMP 98.1
[2020-03-01 15:27] VITALS: PULSE 89
[2020-03-01 15:28] VITALS: BP 113/74
[2020-03-02] MEDS ORDERED: PANTOPRAZOLE 40 MG/10 ML VIAL IV SCH (09:00)
== END 2020-03-01 15:50 | disposition home or self-care (01) ==
LOC: EC 06:41 → 5NMEDONC 09:15
PROVIDERS: ADMIT Obstetrics & Gynecology; ATTEND Obstetrics & Gynecology
DX: O03.4 Incomplete spontaneous abortion without complication (principal); E10.9 Type 1 diabetes mellitus without complications; E03.9 Hypothyroidism, unspecified; J45.909 Unspecified asthma, uncomplicated; Z79.890 Hormone replacement therapy; Z79.4 Long term (current) use of insulin; Z79.51 Long term (current) use of inhaled steroids; Z79.899 Other long term (current) drug therapy; Z88.0 Allergy status to penicillin; Z96.41 Presence of insulin pump (external) (internal); Z82.5 Family history of asthma and other chronic lower respiratory diseases
CPT/HCPCS: 59812; 96360; 99285; 36415; 86900; 86901; 88305; 80053; 85025; 85610; 85730; 84702; 76801; G0378; J2250; J2405; J2001; J3010; J1100; J0330; J2704

== ENCOUNTER → 2020-07-18 | Outpatient (CLI) | payer BC ==
[2020-07-18 15:40] LABS: Basophils % (A) 1 %; Eosinophils # (A) 0.3 k/uL (0-0.7); Eosinophils % (A) 4 %; Lymphocytes # (A) 0.8 k/uL (1.0-4.8); Lymphocytes % (A) 12 %; MCH 27.8 pg (25.0-35.0); MCHC 32.5 g/dL (31.0-37.0); MCV 85.5 fL (80.0-100.0); Mean Platelet Volume 7.5; Monocytes # (A) 0.3 k/uL (0-1.0); Monocytes % (A) 5 %; Neutrophils % (A) 77 %; Platelet Count 241 k/uL (150-450); RBC 5.04 m/uL (3.80-5.40); RDW 13.5 % (11.5-15.5); WBC 6.5 k/uL (3.8-10.6)
[2020-07-19 02:00] LABS: Hemoglobin A1C 6.3 % (4.0-6.0)
[2020-07-19 03:13] LABS: African American GFR (CKD) 134.7 (60.0-200.0); Albumin 4.5 g/dL (3.80-4.90); Anion Gap 8.2 mmol/L (4.00-12.00); BUN/Creat Ratio 15.71 Ratio (12.00-20.00); Calcium 9.4 mg/dL (8.7-10.3); Carbon Dioxide 25.8 mmol/L (21.6-31.8); Chol/HDL Ratio 2.5; Globulin 1.5 g/dL (1.6-3.3); LDL Cholesterol,Calculated 109.2 mg/dL (0.0-131.0); Non-African American GFR(CKD) 116.3 (60.0-200.0); Potassium 3.9 mmol/L (3.5-5.5); Total Bilirubin 0.8 mg/dL (0.2-1.2); VLDL Calculation 10.8 mg/dL (5.00-40.00)
[2020-07-19 03:20] LABS: T4, Free (Free Thyroxine) 1.4 ng/dL (0.80-1.80)
[2020-07-19 14:11] LABS: C. trachomatis,PCR Negative (Neg,Equiv); Chlamydia trachomatis Source Urine; N. gonorrhoeae,PCR Negative (Neg,Equiv); Neisseria Source Urine
== END | disposition home or self-care (01) ==
LOC: LABWHC1 15:12
PROVIDERS: ATTEND Nurse Practitioner Family
DX: E03.9 Hypothyroidism, unspecified (principal); E10.9 Type 1 diabetes mellitus without complications; E55.9 Vitamin D deficiency, unspecified; Z11.3 Encounter for screening for infections with a predominantly sexual mode of transmission
CPT/HCPCS: 36415; 80053; 80061; 82306; 83036; 84439; 84443; 85025; 87491; 87591

== ENCOUNTER → 2020-12-07 | Outpatient (CLI) | payer BC ==
[2020-12-07 15:49] LABS: African American GFR (CKD) 134.7 (60.0-200.0); Anion Gap 8.4 mmol/L (4.00-12.00); BUN/Creat Ratio 25.71 Ratio (12.00-20.00); Calcium 9.2 mg/dL (8.7-10.3); Carbon Dioxide 26.6 mmol/L (21.6-31.8); Chol/HDL Ratio 3.22; LDL Cholesterol,Calculated 119.2 mg/dL (0.0-131.0); Non-African American GFR(CKD) 116.3 (60.0-200.0); Potassium 4.3 mmol/L (3.5-5.5); VLDL Calculation 24.8 mg/dL (5.00-40.00)
[2020-12-07 15:56] LABS: T4, Free (Free Thyroxine) 1.3 ng/dL (0.80-1.80)
[2020-12-07 18:14] LABS: Hemoglobin A1C 5.7 % (4.0-6.0)
[2020-12-08 00:23] LABS: Microalbumin Creatinine Ratio <30 mg/g Creat (0-30); Urine Creatinine 109.7 mg/dL
== END | disposition home or self-care (01) ==
LOC: LABWHC1 10:30
PROVIDERS: ATTEND Internal Medicine
DX: E10.9 Type 1 diabetes mellitus without complications (principal)
CPT/HCPCS: 36415; 80048; 80061; 82043; 82570; 83036; 84439; 84443

== ENCOUNTER → 2021-09-07 | Outpatient (CLI) | payer BC ==
[2021-09-07 19:17] LABS: T4, Free (Free Thyroxine) 1.26 ng/dL (0.800-1.800)
== END | disposition home or self-care (01) ==
LOC: LABWHC1 10:10
PROVIDERS: ATTEND Internal Medicine
DX: E10.65 Type 1 diabetes mellitus with hyperglycemia (principal); E03.9 Hypothyroidism, unspecified
CPT/HCPCS: 36415; 83036; 84439; 84443

== ENCOUNTER → 2022-04-17 | Outpatient (CLI) | payer BC ==
[2022-04-17 15:14] LABS: ALT 17 U/L (8-44); AST 20 U/L (13-35); African American GFR (CKD) 136.8 (60.0-200.0); Albumin 4.5 g/dL (3.8-4.9); Albumin/Globulin Ratio 2.46 (1.60-3.17); Alkaline Phosphatase 60 U/L (41-126); BUN/Creat Ratio 24.65 Ratio (12.00-20.00); Blood Urea Nitrogen 15.8 mg/dL (9.0-27.0); Calcium 9.4 mg/dL (8.7-10.3); Carbon Dioxide 25.4 mmol/L (20.0-27.5); Chloride 101 mmol/L (96-109); Chol/HDL Ratio 2.91 Ratio; Globulin 1.8 g/dL (1.6-3.3); Glucose 214 mg/dL (70-110); LDL Cholesterol,Calculated 109.5 mg/dL (0.0-131.0); Potassium 4.3 mmol/L (3.5-5.5); Sodium 137 mmol/L (135-145); Total Protein 6.3 g/dL (6.2-8.2); VLDL Calculation 14.04 mg/dL (5.00-40.00)
== END | disposition home or self-care (01) ==
LOC: LABWHC1 08:31
PROVIDERS: ATTEND Internal Medicine
DX: E03.9 Hypothyroidism, unspecified (principal); E10.9 Type 1 diabetes mellitus without complications
CPT/HCPCS: 36415; 80053; 80061; 83036; 84439; 84443

== ENCOUNTER → 2022-08-16 | Outpatient (CLI) | payer BC ==
--- NOTE | 2022-08-16 16:58 | US ---
EXAMINATION TYPE: US abdomen complete DATE OF EXAM: 08/16/2022 COMPARISON: NONE CLINICAL HISTORY: R10.9 ABD PAIN. Midepigastric, right upper quadrant pain TECHNIQUE: Multiple sonographic images of the abdomen are obtained. FINDINGS: EXAM MEASUREMENTS: Liver Length: 14.4 cm Gallbladder Wall: 0.13 cm CBD: 0.23 cm Spleen: 11.1 cm Right Kidney: 9.5 x 4.0 x 4.3 cm Left Kidney: 11.2 x 4.6 x 4.4 cm Pancreas: Tail obscured by overlying bowel gas Liver: wnl Gallbladder: wnl Evidence for sonographic Rogers's sign: No CBD: wnl Spleen: wnl Right Kidney: wnl Left Kidney: wnl Upper IVC: wnl Abd Aorta: wnl The liver is homogenous. The intrahepatic portion of the IVC and proximal abdominal aorta are within normal limits. There is no evidence of cholelithiasis. Common bile duct is unremarkable. The visu alized portions of the pancreas are homogenous. The spleen is unremarkable. Kidneys are free of hyd ronephrosis. No renal lesions are seen. IMPRESSION: Examination is within normal limits
== END | disposition home or self-care (01) ==
LOC: RADUSWWP 15:19
PROVIDERS: ATTEND Internal Medicine Geriatric Medicine
DX: R10.9 Unspecified abdominal pain (principal)
CPT/HCPCS: 76700

== ENCOUNTER → 2022-09-25 | Outpatient (CLI) | payer BC ==
[2022-09-25 14:44] LABS: T4, Free (Free Thyroxine) 1.33 ng/dL (0.800-1.800)
[2022-09-25 18:51] LABS: Microalbumin Creatinine Ratio <30 mg/g Creat (0-30)
== END | disposition home or self-care (01) ==
LOC: LABWHC1 08:43
PROVIDERS: ATTEND Internal Medicine
DX: E03.9 Hypothyroidism, unspecified (principal); E10.9 Type 1 diabetes mellitus without complications
CPT/HCPCS: 36415; 82043; 82570; 83036; 84439; 84443

== ENCOUNTER → 2023-06-29 | Outpatient (CLI) | payer BC ==
[2023-06-29 12:15] LABS: Creatinine,Urine Random 117.7 mg/dL
[2023-06-30 12:08] LABS: ALT 18 U/L (8-44); AST 22 U/L (13-35); Albumin 4.4 d/dL (3.8-4.9); Albumin/Globulin Ratio 3.14 Ratio (1.60-3.17); Alkaline Phosphatase 58 U/L (41-126); BUN/Creat Ratio 22.67 Ratio (12.00-20.00); Blood Urea Nitrogen 13.6 mg/dL (9.0-27.0); Calcium 9.4 mg/dL (8.7-10.3); Carbon Dioxide 22.5 mmol/L (21.6-31.8); Chloride 104 mmol/L (96-109); Chol/HDL Ratio 3.54 Ratio; Globulin 1.4 d/dL (1.6-3.3); Glucose 147 mg/dL (70-110); LDL Cholesterol,Calculated 124.2 mg/dL (0.0-131.0); Potassium 4.3 mmol/L (3.5-5.5); Sodium 138 mmol/L (135-145); Total Bilirubin 0.5 mg/dL (0.3-1.2); Total Protein 5.8 d/dL (6.2-8.2); VLDL Calculation 16.44 mg/dL (5.00-40.00)
== END | disposition home or self-care (01) ==
LOC: LABWHC1 10:27
PROVIDERS: ATTEND Internal Medicine
DX: E10.9 Type 1 diabetes mellitus without complications (principal)
CPT/HCPCS: 36415; 80053; 80061; 82570; 83036; 84156